=== PATIENT | male | born 1970 | race Caucasian/White ===

== ENCOUNTER 2018-12-24 18:30 | Emergency (ER) | payer OTHER ==
[~2018-12-24] VITALS: Ht 185.4 cm; Wt 114.1 kg
[2018-12-24] MEDS ORDERED: FOLI1TAB11 PO (18:37)
[2018-12-24] MEDS ORDERED: METH2.5T48 PO (18:37)
[2018-12-24] MEDS ORDERED: CEPHALEXIN 500 MG CAP PO ONE (19:45)
[2018-12-24] MEDS ORDERED: cefTRIAXone SOD 1 GM in D5W MINI-BAG PLUS 50 ML IV ONE (19:45)
[2018-12-24 19:49] LABS: BASO % 0.2 % (0.0-1.0); EOS # 0.1 10^3/uL (0.0-0.5); EOS % 0.9 % (0.0-3.0); HEMATOCRIT 44.3 % (42.0-52.0); HEMOGLOBIN 15.1 g/dl (13.5-17.5); LYMPH # 1.7 10^3/uL (1.5-5.0); LYMPH % 17.8 % (24.0-44.0); MEAN CORPUSCULAR HEMOGLOBIN 29.3 pg (27.0-33.0); MEAN CORPUSCULAR HGB CONC 34.1 g/dl (32.0-36.5); MONO # 0.8 10^3/uL (0.0-0.8); MONO % 7.9 % (0.0-5.0); NEUTROPHILS # 7.1 10^3/uL (1.5-8.5); NEUTROPHILS % 72.9 % (36.0-66.0); PLATELET COUNT, AUTOMATED 270 10^3/uL (150-450); RED BLOOD COUNT 5.15 10^6/uL (4.30-6.10); WHITE BLOOD COUNT 9.8 10^3/uL (4.0-10.0)
[2018-12-24 20:12] LABS: ERYTHROCYTE SEDIMENTATION RATE 6 mm/hr (0-15)
[2018-12-24] MEDS ORDERED: KEFL500C17 PO (20:20)
[2018-12-24 20:26] VITALS: BP 137/79
[2018-12-24] MEDS ORDERED: KETOROLAC 30 MG/ML VIAL (J1885) IV ONE (20:30)
== END 2018-12-24 21:15 | disposition home or self-care (01) ==
LOC: M ED 18:30
DX: L03.115 Cellulitis of right lower limb (principal); G47.30 Sleep apnea, unspecified; M19.90 Unspecified osteoarthritis, unspecified site; Z79.899 Other long term (current) drug therapy
CPT/HCPCS: 36415; 80047; 85025; 85652; 86140; 87040; 87070; 87077; 87186; 96374; 96375; 99284; J0696; J1885

== ENCOUNTER → 2022-05-06 | Outpatient (CLI) | payer OTHER ==
[~2022-05-06] MED LIST: FOLI1TAB11 PO; KEFL500C17 PO; METH2.5T48 PO; PRAZ5CAP PO; TRAZ-257 PO; ZOLO100T PO
== END ==
LOC: M LABSMTC 11:14
PROVIDERS: ATTEND Anesthesiology
DX: Z01.812 Encounter for preprocedural laboratory examination (principal); Z11.52 Encounter for screening for COVID-19

== ENCOUNTER 2022-05-11 08:40 | Day surgery (SDC) | payer OTHER ==
[~2022-05-11] VITALS: Ht 188 cm; Wt 113.4 kg
[~2022-05-11 08:40] MED LIST changes: +LIDOCAINE 2% 100MG/5ML SDV (FOR ANES.) As Ordered ONE; +NS 1,000 ML IV ONE; +propofoL 200 MG/20 ML VIAL As Ordered ONE
[2022-05-11 10:37] VITALS: BP 143/83
== END 2022-05-11 10:39 | disposition home or self-care (01) ==
LOC: M OPP 08:40
PROVIDERS: ATTEND Internal Medicine Gastroenterology
DX: Z12.11 Encounter for screening for malignant neoplasm of colon (principal); D12.6 Benign neoplasm of colon, unspecified; K64.0 First degree hemorrhoids; K22.89 Other specified disease of esophagus; G47.33 Obstructive sleep apnea (adult) (pediatric); F43.10 Post-traumatic stress disorder, unspecified; F41.9 Anxiety disorder, unspecified; Z79.899 Other long term (current) drug therapy; Z99.89 Dependence on other enabling machines and devices

== ENCOUNTER → 2023-07-20 | Outpatient (CLI) | payer OTHER ==
[~2023-07-20] MED LIST changes: -LIDOCAINE 2% 100MG/5ML SDV (FOR ANES.) As Ordered ONE; -NS 1,000 ML IV ONE; +OMEGA-3 1000MG CAPSULE ONE; +PROHANCE 279.3MG/ML 15ML VIAL ONE; +PROHANCE 279.3MG/ML 5ML VIAL ONE; -propofoL 200 MG/20 ML VIAL As Ordered ONE
== END ==
LOC: M PLAIMG 09:43
PROVIDERS: ATTEND Physician Assistant
DX: M25.531 Pain in right wrist (principal); M67.431 Ganglion, right wrist
CPT/HCPCS: 73223; A9576

== ENCOUNTER 2023-09-08 06:53 | Day surgery (SDC) | payer OTHER ==
[~2023-09-08] VITALS: Ht 188 cm; Wt 125.3 kg
[~2023-09-08 06:53] MED LIST changes: -OMEGA-3 1000MG CAPSULE ONE; -PROHANCE 279.3MG/ML 15ML VIAL ONE; -PROHANCE 279.3MG/ML 5ML VIAL ONE
[2023-09-08] MEDS: LR 1,000 ML IV SCH (08:02)
[2023-09-08] MEDS ORDERED: ONDANSETRON 4MG 2ML VIAL As Ordered ONE (08:56)
[2023-09-08] MEDS ORDERED: propofoL 200 MG/20 ML VIAL As Ordered ONE (08:56)
[2023-09-08] MEDS ORDERED: KETOROLAC 60MG 2ML VIAL As Ordered ONE (08:56)
[2023-09-08] MEDS ORDERED: LIDOCAINE 2% 100MG/5ML SDV (FOR ANES.) As Ordered ONE (08:56)
[2023-09-08] MEDS ORDERED: fentaNYL 100 MCG/2 ML INJECTION As Ordered ONE (08:57)
[2023-09-08] MEDS ORDERED: MIDAZOLAM INJ 2MG/2ML VIAL As Ordered ONE (08:57)
[2023-09-08] MEDS ORDERED: SEVOFLURANE INHAL SOLN 250 ML BTL As Ordered ONE (09:23)
[2023-09-08] MEDS ORDERED: ACETAMINOPHEN 1000MG 100ML IV BAG As Ordered ONE (09:23)
[2023-09-08] MEDS ORDERED: dexmedeTOMIDine (4MCG/ML)200MCG/50ML BTL (PRECEDEX) As Ordered ONE (09:23)
[2023-09-08] MEDS ORDERED: LIDOCAINE 5% OINT 30GM TUBE As Ordered ONE (09:29)
[2023-09-08] MEDS: ceFAZolin 2 GM/D5W 50 ML IV BAG As Ordered ONE (09:40)
[2023-09-08] MEDS: ceFAZolin 1GM VIAL As Ordered ONE (09:46)
[2023-09-08] MEDS ORDERED: LABETALOL 100MG/20ML VIAL As Ordered ONE (10:09)
[2023-09-08] MEDS: BACITRACIN OINTMENT 30GM TUBE As Ordered ONE (10:39)
[2023-09-08] MEDS ORDERED: fentaNYL 100 MCG/2 ML INJECTION IV PRN (10:55)
[2023-09-08] MEDS ORDERED: HYDROMORPHONE HCL 0.5 MG/ 0.5 ML SYRINGE IV PRN (10:55)
[2023-09-08] MEDS ORDERED: oxyCODONE 5MG TAB PO PRN (10:55)
[2023-09-08] MEDS ORDERED: LR 1,000 ML IV SCH (10:55)
[2023-09-08] MEDS ORDERED: ONDANSETRON 4MG 2ML VIAL IV PRN (10:55)
[2023-09-08 11:40] VITALS: BP 115/72; TEMP 97.1; O2SAT 96
[2023-09-08] MEDS ORDERED: OXYC1TAB23 PO (12:05)
== END 2023-09-08 12:35 | disposition home or self-care (01) ==
LOC: M SDC 06:53
PROVIDERS: ATTEND Orthopaedic Surgery Hand Surgery
DX: M67.431 Ganglion, right wrist (principal)
CPT/HCPCS: 25112; 88305; J0131; J0665; J0690; J1100; J1885; J1920; J2250; J2405; J3010

== ENCOUNTER → 2024-10-24 | Outpatient (CLI) | payer OTHER ==
[~2024-10-24] MED LIST changes: +OXYC1TAB23 PO
== END ==
LOC: M CARPUL 07:39
PROVIDERS: ATTEND Internal Medicine Cardiovascular Disease
DX: R94.31 Abnormal electrocardiogram [ECG] [EKG] (principal); I10 Essential (primary) hypertension; G47.33 Obstructive sleep apnea (adult) (pediatric)

== ENCOUNTER → 2024-12-21 | Outpatient (CLI) | payer OTHER | LOC: M PLAIMG 07:48 | PROVIDERS: ATTEND Internal Medicine Cardiovascular Disease | DX: R94.31 Abnormal electrocardiogram [ECG] [EKG] (principal) ==